=== PATIENT | male | born 1990 | race Caucasian/White ===

== ENCOUNTER 2018-07-29 23:17 | Emergency (ER) | payer SELFPAY ==
[2018-07-30] MEDS ORDERED: DOXYcycline CAP(*) 100 MG PO ONE (00:40)
--- NOTE | 2018-07-30 00:41 | ED ---
Skin Complaint - HPI Summary HPI Summary: Patient is a 27-year-old male who presents emergency department for a tick to his right ankle times one day. Patient states he was hiking today and noticed a tick attached to his right lower leg this evening. Patient states he is fairly certain that he obtained tick today. Symptoms are mild in severity. No past medical history. Patient notes he is visiting the area from [place]. - History of Current Complaint Chief Complaint: EDRashSkinAbscess Time Seen by Provider: 07/29/18 23:59 Stated Complaint: TICK ON LEG PER PT Hx Obtained From: Patient Pain Intensity: 0 - Allergy/Home Medications Allergies/Adverse Reactions: Allergies Allergy/AdvReac Type Severity Reaction Status Date / Time No Known Allergies Allergy Verified 07/29/18 23:39 Home Medications: Home Medications NK [No Home Medications Reported] 07/30/18 [History Confirmed 07/30/18] PMH/Surg Hx/FS Hx/Imm Hx Previously Healthy: Yes Infectious Disease History: No Infectious Disease History: Reports: Traveled Outside the [place] in Last 30 Days - Social History Alcohol Use: Occasionally Substance Use Type: Reports: None Smoking Status (MU): Light Every Day Tobacco Smoker Review of Systems Constitutional: Negative Negative: Fever Positive: Other - tick to right lower ankle. Negative: Rash Neurological: Negative Negative: Headache All Other Systems Reviewed And Are Negative: Yes Physical Exam Triage Information Reviewed: Yes Vital Signs On Initial Exam: Initial Vitals Temp Pulse Resp BP Pulse Ox 98.5 F 97 16 152/98 99 07/29/18 23:38 07/29/18 23:38 07/29/18 23:38 07/29/18 23:38 07/29/18 23:38 Vital Signs Reviewed: Yes Appearance: Positive: Well-Appearing - Pt. sitting on bed in NAD. Skin: Positive: Warm, Dry Head/Face: Positive: Normal Head/Face Inspection Eyes: Positive: Normal, EOMI Neck: Positive: Supple Musculoskeletal: Positive: Other - Small tick noted embedded over right lower lateral leg. No surrounding erythema. No erythema migrans. Neurological: Positive: Normal, CN Intact II-III Psychiatric: Positive: Affect/Mood Appropriate Procedures - Procedure Summary Procedure Summary: Tick to right lower leg removed easily with tick twister. Diagnostics - Vital Signs Vital Signs Temp Pulse Resp BP Pulse Ox 07/29/18 23:38 98.5 F 97 16 152/98 99 - Laboratory Lab Statement: Any lab studies that have been ordered have been reviewed, and results considered in the medical decision making process. Course/Dx - Course Course Of Treatment: Pt. presenting with tick which he believes has been present less than 24 hours. Will given prophylactic dose of doxycycline. Can f.u with [facility] if needed. - Differential Diagnoses - Skin Complaint Differential Diagnoses: Tick Born Illness - Diagnoses Provider Diagnoses: Tick bite Discharge - Sign-Out/Discharge Documenting (check all that apply): Patient Departure Patient Received Moderate/Deep Sedation with Procedure: No - Discharge Plan Condition: Improved Disposition: HOME Patient Education Materials: Lyme Disease (ED), Tick Bite (ED) Referrals: [facility] [Outside] Additional Instructions: Can follow up with the [facility] if needed Watch for rash, fever, headache, joint pain - Billing Disposition and Condition Condition: IMPROVED Disposition: Home
[2018-07-30 00:57] VITALS: BP 136/82
== END 2018-07-30 00:05 | disposition home or self-care (01) ==
LOC: ED 23:17
DX: S90.561A Insect bite (nonvenomous), right ankle, initial encounter (principal); W57.XXXA Bitten or stung by nonvenomous insect and other nonvenomous arthropods, initial encounter; Y92.9 Unspecified place or not applicable; F17.210 Nicotine dependence, cigarettes, uncomplicated
CPT/HCPCS: 99282; A9270-GY